=== PATIENT | female | born 1990 | race Caucasian/White ===

== ENCOUNTER 2024-03-23 05:45 | Inpatient (IN) | payer OTHER ==
[2024-03-23] MEDS: ELECTROLYTE-148 SOLN 500 ML IV SCH (06:15)
[2024-03-23] MEDS: CITRIC ACID/SODIUM CITRATE 30 ML UNIT-DOSE CUP PO ONE (06:30)
[2024-03-23 06:32] VITALS: BMI 31.7
[2024-03-23] MEDS ORDERED: morphine SULFATE/PF 1 MG/2 ML (2cc Syringe - QUVA) ONE (07:56)
[2024-03-23] MEDS ORDERED: METOCLOPRAMIDE HCL INJECTION 10 MG/2 ML VIAL ONE (08:05)
[2024-03-23] MEDS ORDERED: ONDANSETRON 4 MG/2 ML VIAL ONE (08:05)
[2024-03-23] MEDS ORDERED: METHYLERGONOVINE MALEATE 0.2 MG/1 ML AMP IM PRN (09:31)
[2024-03-23] MEDS ORDERED: IBUPROFEN 800 MG/8 ML IJ IVPB ONE ×2 (11:00→11:12)
[2024-03-23] MEDS ORDERED: OXYTOCIN 20 UNITS in 0.9% NS 20 UNIT/1,000 ML INFUS.BAG IV ONE (11:01)
[2024-03-23] MEDS: ELECTROLYTE-148 SOLN 1,000 ML IV SCH (11:25)
[2024-03-23] MEDS: IBUPROFEN 800 MG/8 ML IJ IVPB PRN (11:27)
[2024-03-23] MEDS ORDERED: oxyCODONE HCL 5 MG TABLET PO PRN (21:31)
[2024-03-24] MEDS: OXYTOCIN 20 UNITS in 0.9% NS 20 UNIT/1,000 ML INFUS.BAG IV SCH (00:11)
[2024-03-24] MEDS: ACETAMINOPHEN 1000 MG/100 ML BAG IVPB PRN (00:14)
[2024-03-24 09:16] LABS: BASO % 0.1 % (0-2.0); EOS % 1.9 % (0-4.5); HEMATOCRIT 29.9 % (32.4-45.2); MCHC 33.7 g/dl (32.0-36.0); MEAN PLT VOLUME 8.1 fl (7.5-11.1); MONO % 6.4 % (3.8-10.2); NEUT % 81.6 % (42.8-82.8); PLATELET COUNT 262 10^3/uL (134-434); RBC 3.24 M/mm3 (3.60-5.2); RDW 13.6 % (11.6-15.6); WHITE BLOOD COUNT 18.7 K/mm3 (4.0-10.0)
[2024-03-24] MEDS ORDERED: BISACODYL 10 MG SUPP.RECT RC PRN (09:31)
[2024-03-24] MEDS: FERROUS SO4 325 MG TABLET (FP) PO SCH (09:54)
[2024-03-24] MEDS: PRENATAL VITAMINS W/ FOLIC ACID TABLET (FP) PO SCH (09:54)
[2024-03-24] MEDS: IBUPROFEN 600 MG TABLET (FP) PO PRN (14:12)
[2024-03-24] MEDS: SENNOSIDES/DOCUSATE COMBO (SENNA PLUS) TABLET (UD) PO PRN (21:03)
[2024-03-25] MEDS: SIMETHICONE 80 MG TAB.CHEW (FP) PO PRN (09:03)
[2024-03-25] MEDS: ACETAMINOPHEN 325 MG TABLET (FP) PO PRN (13:02)
[2024-03-25] MEDS: oxyCODONE HCL 5 MG TABLET PO PRN (23:45)
[2024-03-26 10:19] VITALS: BP 124/74; PULSE 78; RESP 20; TEMP 97.9
== END 2024-03-26 11:55 | disposition home or self-care (01) | DRG 540 ==
LOC: JLDR 05:45 → J3W 11:50
PROVIDERS: ADMIT Obstetrics & Gynecology; ATTEND Obstetrics & Gynecology
PROC: 10D00Z1 Extraction of Products of Conception, Low, Open Approach (ICD-10-PCS; principal; 2024-03-23)
DX: O34.211 Maternal care for low transverse scar from previous cesarean delivery (principal); N85.8 Other specified noninflammatory disorders of uterus; O69.81X0 Labor and delivery complicated by cord around neck, without compression, not applicable or unspecified; Z3A.39 39 weeks gestation of pregnancy; Z37.0 Single live birth
CPT/HCPCS: 36415; 59409; 80053; 85025; 85610; 85730; 86780; 86803; 86850; 86900; 86901; 87389; 88307-TC; 94010; J0131